=== PATIENT | male | born 1940 | race Caucasian/White ===

== ENCOUNTER 2020-11-11 08:55 | Day surgery (SDC) | payer MEDICARE ==
[~2020-11-11] VITALS: Ht 177.8 cm; Wt 71.7 kg
[~2020-11-11 08:55] MED LIST: APIX5TAB3 PO
[2020-11-11] MEDS ORDERED: albumin 25% 100mL bottle x 1 IV PRN (09:20)
[2020-11-11] MEDS ORDERED: OMEP-50 PO (09:47)
[2020-11-11] MEDS ORDERED: ASPI-1265 PO (09:47)
[2020-11-11] MEDS ORDERED: LOSA25TA96 PO (09:47)
[2020-11-11] MEDS ORDERED: AMLO2.5T2 PO (09:47)
[2020-11-11 10:09] VITALS: BP 136/85
[2020-11-11 10:35] VITALS: BP 155/98
[2020-11-11 10:40] VITALS: BP 126/77
[2020-11-11 10:45] VITALS: BP 124/76
[2020-11-11 11:00] VITALS: BP 122/76
[2020-11-11 12:14] LABS: LDH,BODY FLUID 122 U/L
[2020-11-11 12:26] LABS: BF RBC COUNT 2275 /CU MM; BF WBC COUNT 1675 /CU MM (0-1000); BFAPPEAR CLOUDY; BFCOLOR YELLOW; BFVOLUME 60 ML; LYMPHOCYTES,BODY FLUID 93 %; MONOCYTES,BODY FLUID 7 %; NEUTROPHILS,BODY FLUID 0 %
== END 2020-11-11 11:15 | disposition home or self-care (01) ==
LOC: SSTAY O 08:55
PROVIDERS: ATTEND Radiology Vascular & Interventional Radiology
DX: J90 Pleural effusion, not elsewhere classified (principal); Z20.822 Contact with and (suspected) exposure to COVID-19; I10 Essential (primary) hypertension; K21.9 Gastro-esophageal reflux disease without esophagitis; Z85.46 Personal history of malignant neoplasm of prostate; Z85.828 Personal history of other malignant neoplasm of skin; Z86.718 Personal history of other venous thrombosis and embolism; Z90.79 Acquired absence of other genital organ(s); Z98.890 Other specified postprocedural states; Z72.89 Other problems related to lifestyle; Z87.891 Personal history of nicotine dependence; Z79.82 Long term (current) use of aspirin; Z79.899 Other long term (current) drug therapy
CPT/HCPCS: 32555; 83615; 84157; 87070; 87635; 89051; C9803